=== PATIENT | female | born 1950 ===

== ENCOUNTER 2018-06-01 15:21 | Emergency (ER) | payer BC ==
[2018-06-01 15:29] VITALS: RESP 18
--- NOTE | 2018-06-01 17:08 | ED PDOC ---
HPI: Trauma/Fall <Hannah Schaefer Y - Last Filed: 06/01/18 19:03> - HPI History Per: Patient Additional Complaint(s): Pt is a 67 y/o female presenting to ED with trauma to the head. Pt states she was walking briskly and tripped on uneven pavement and fell forward landing on her knuckles and left knee first then hitting her face on the sidewalk. She denies any preceding symptoms (lightheadedness/vertigo) or post fall LOC, Dizziness, Vomiting, Motor weakness, sensory deficits, blurry vision, Confusion or drowsiness. At the moment, she complains of soreness over her left knee and right 5th digit. Denies any motor weakness or sensory deficits. Was able to walk to hospital on her afterwards. Daughter at bedside. PMD: Dr. Mock PMHX: HTN, DM, HLD, Ostheoarthritis, Thyroid Ca Hx SHx: C section, thyroid resection Social: Denies smoking, or heavy alcohol use. <Benita Novak - Last Filed: 06/01/18 19:15> - HPI Time Seen by Provider: 06/01/18 16:42 Chief Complaint (Nursing): Trauma Past Medical History Vital Signs: Last Vital Signs Temp 97.9 F 06/01/18 15:25 Pulse 78 06/01/18 15:25 Resp 18 06/01/18 15:25 BP 163/75 H 06/01/18 15:25 Pulse Ox 98 06/01/18 17:52 <Hannah Schaefer Y - Last Filed: 06/01/18 19:03> Reviewed: Historical Data, Nursing Documentation, Vital Signs Vital Signs: Last Vital Signs Temp 97.9 F 06/01/18 15:25 Pulse 78 06/01/18 15:25 Resp 18 06/01/18 15:25 BP 163/75 H 06/01/18 15:25 Pulse Ox 98 06/01/18 15:25 - Medical History PMH: HTN, Hypothyroidism - Surgical History Other surgeries: Thyroidectemy. C section - Family History Family History: States: No Known Family Hx - Living Arrangements Living Arrangements: With Family - Immunization History Hx Tetanus Toxoid Vaccination: No (Cannot remember) <Benita Novak - Last Filed: 02/14/19 19:15> - Allergies Allergies/Adverse Reactions: Allergies Allergy/AdvReac Type Severity Reaction Status Date / Time No Known Allergies Allergy Unverified 07/06/13 16:31 Review of Systems Constitutional: Negative for: Fever, Chills Cardiovascular: Negative for: Chest Pain, Palpitations Respiratory: Negative for: Cough, Shortness of Breath Gastrointestinal: Negative for: Nausea, Vomiting, Abdominal Pain Musculoskeletal: Positive for: Hand Pain (right finger), Leg Pain (Left knee). Negative for: Neck Pain, Shoulder Pain, Arm Pain, Back Pain, Foot Pain Neurological: Negative for: Weakness, Numbness, Incoordination, Change in Speech <Benita Novak - Last Filed: 06/01/18 19:15> Physical Exam - Physical Exam Appears: Positive for: No Acute Distress (Pleasant elderly females appears comfortable) Head Exam: Negative for: ATRAUMATIC (Left superior orbital region- 1-2cm superficial laceration with dried blood, with mild swelling. No palpable head tenderness or any signs of trauma.) Skin: Positive for: Normal Color Eye Exam: Positive for: EOMI, PERRL, Periorbital swelling (Right upper oribital swelling, mild, no ecchymosis). Negative for: Nystagmus, Conjunctival injection ENT: Positive for: TM Is/Are (in tact bilaterally), Other (No nasal or ear blood) Neck: Positive for: Normal, Painless ROM Cardiovascular/Chest: Positive for: Regular Rate, Rhythm, Other (No chest wall pain). Negative for: Chest Non Tender Respiratory: Positive for: Normal Breath Sounds. Negative for: Accessory Muscle Use, Crackles, Rales Gastrointestinal/Abdominal: Positive for: Normal Exam, Bowel Sounds, Soft. Negative for: Tenderness Back: Positive for: Normal Inspection, Other (Gait normal). Negative for: Vertebral Tenderness Extremity: Positive for: Normal ROM, Other (Left knee, mildly swollen, superficial abrasions, Full ROM, mildly tender to palpation. Right 5th digit-No visible deformities, small abrasians, Full ROM, no popping/clicking.). Negative for: Pedal Edema Neurologic/Psych: Positive for: Alert, measuring machine tender II-XII, Oriented, Gait. Negative for: Motor/Sensory Deficits, Aphasia, Facial Droop <Benita Novak - Last Filed: 06/01/18 19:15> - ECG O2 Sat by Pulse Oximetry: 98 <Benita Novak - Last Filed: 06/01/18 19:15> Medical Decision Making Medical Decision Makin:00 Patient s/p mechanical fall and has an abrasion above the right eyebrow. No LOC. Patient reports a slight headache. Will image head and X-ray finger and knee. Patient denies hip pain and is ambulating with steady gait. Neuro exam was normal. Patient will get tetanus vaccination and will clean wound and cover with Bacitracin. 17:24 Knee X-ray FINDINGS: BONES: Bone alignment and mineralization are normal. There is no acute displaced fracture or bone destruction. There are large patellar enthesophytes. JOINTS: There is moderate tricompartmental degenerative osteoarthrosis with reduced joint spaces, marginal osteophytes and tibial spiking, worse in the medial compartment. JOINT EFFUSION: There is a small suprapatellar joint effusion. OTHER FINDINGS: None. IMPRESSION: Moderate tricompartmental degenerative osteoarthrosis, worse in the medial compartment. Small suprapatellar joint effusion. 17:30 Hand X-ray FINDINGS: RIGHT SMALL FINGER: Normal right small finger, without acute fracture or focal lesion. Remainder of the right hand (as seen on the AP view) grossly unremarkable. JOINTS: Mild degenerative osteoarthrosis in the interphalangeal joints. The metacarpophalangeal joints are normal. SOFT TISSUES: Normal. OTHER FINDINGS: None. IMPRESSION: No acute displaced fracture or dislocation. 18:[address] Findings: Streak artifact from dental hardware. The facial bones appear unremarkable without acute displaced fracture. The orbits appear unremarkable. The temporomandibular joints appear located. Under aeration of the left mastoid air cells and to a lesser extent right mastoid air cells; correlate clinically for history of mastoiditis. The paranasal sinuses appear clear. The visualized brain appears unremarkable. The soft tissues appear unremarkable. Impression: No acute findings identified. Under aeration of the left mastoid air cells and to lesser extent right mastoid air cells; correlate clinically for history of mastoiditis. 18:[address] FINDINGS: HEMORRHAGE: No intracranial hemorrhage. BRAIN: No mass effect or edema. Bilateral basal ganglia calcifications. Intracranial atherosclerotic calcifications. The cedillo-white matter differentiation appears intact. Please note that MRI with diffusion imaging is more sensitive in the detection of acute ischemic event. VENTRICLES: No hydrocephalus. CALVARIUM: Unremarkable. PARANASAL SINUSES: Unremarkable as visualized. No significant inflammatory changes. MASTOID AIR CELLS: Unremarkable as visualized. No inflammatory changes. OTHER FINDINGS: None. IMPRESSION: No acute intracranial pathology identified. Incidental findings as above. 18:20 Imaging negative. Will discharge home. 19:03 Upon reevaluation, patient has no masstoid tenderness or ear pain. <Hannah Schaefer Y - Last Filed: 06/01/18 19:03> Medical Decision Makin67 y/o female with hx of mechanical fall including trauma to Head, Face, Right Finger, and Left knee and mild nausea headache. Alert and Oriented, No motor/sensory deficits. Tylenol Zofran ODT TDAP Head CT MaxiFac CT Xray Right 5th digit and Left knee Visual Acuity Small laceration above right eye, superficial, no active bleeding, 1-2cm, cleaned, no foreign bodies noted, bacitracin applied <Benita Novak - Last Filed: 06/01/18 19:15> Disposition <Hannah Schaefer Y - Last Filed: 06/01/18 19:03> - Patient ED Disposition Is Patient to be Admitted: No - Disposition Disposition: Routine/Home Disposition Time: 19:15 <Benita Novak - Last Filed: 06/01/18 19:15> - Clinical Impression Clinical Impression: Fall from slip, trip, or stumble - Disposition Condition: IMPROVED Additional Instructions: follow up with your primary doctor in 1-2 days return to the ED with any worsening or concerning symptoms Instructions: Preventing Falls in the Older Adult, Preventing Falls Forms: [employer] (Ecuadorean)
--- NOTE | 2018-06-01 17:28 | RAD ---
Date of service: 06/01/2018 PROCEDURE: Left Knee Radiographs. HISTORY: Pain. COMPARISON: 08/03/2007 FINDINGS: BONES: Bone alignment and mineralization are normal. There is no acute displaced fracture or bone destruction. There are large patellar enthesophytes. JOINTS: There is moderate tricompartmental degenerative osteoarthrosis with reduced joint spaces, marginal osteophytes and tibial spiking, worse in the medial compartment. JOINT EFFUSION: There is a small suprapatellar joint effusion. OTHER FINDINGS: None. IMPRESSION: Moderate tricompartmental degenerative osteoarthrosis, worse in the medial compartment. Small suprapatellar joint effusion.
--- NOTE | 2018-06-01 17:34 | RAD ---
Date of service: 06/01/2018 PROCEDURE: Right small finger radiographs. HISTORY: trauma, r/o fx COMPARISON: None. TECHNIQUE: AP radiograph of the right hand, as well as spot oblique and lateral images of small finger were obtained. FINDINGS: RIGHT SMALL FINGER: Normal right small finger, without acute fracture or focal lesion. Remainder of the right hand (as seen on the AP view) grossly unremarkable. JOINTS: Mild degenerative osteoarthrosis in the interphalangeal joints. The metacarpophalangeal joints are normal. SOFT TISSUES: Normal. OTHER FINDINGS: None. IMPRESSION: No acute displaced fracture or dislocation.
[2018-06-01] MEDS ORDERED: Tdap Vaccine 0.5 ml Vial (10-64 yrs) IM ONE ×2 (17:39→18:18)
--- NOTE | 2018-06-01 18:09 | CT ---
Date of service: 06/01/2018 PROCEDURE: CT HEAD WITHOUT CONTRAST. HISTORY: s/p head trauma COMPARISON: None available. TECHNIQUE: Axial computed tomography images were obtained through the head/brain without intravenous contrast. Radiation dose: Total exam DLP = 1570.02 mGy-cm. This CT exam was performed using one or more of the following dose reduction techniques: Automated exposure control, adjustment of the mA and/or kV according to patient size, and/or use of iterative reconstruction technique. FINDINGS: HEMORRHAGE: No intracranial hemorrhage. BRAIN: No mass effect or edema. Bilateral basal ganglia calcifications. Intracranial atherosclerotic calcifications. The cedillo-white matter differentiation appears intact. Please note that MRI with diffusion imaging is more sensitive in the detection of acute ischemic event. VENTRICLES: No hydrocephalus. CALVARIUM: Unremarkable. PARANASAL SINUSES: Unremarkable as visualized. No significant inflammatory changes. MASTOID AIR CELLS: Unremarkable as visualized. No inflammatory changes. OTHER FINDINGS: None. IMPRESSION: No acute intracranial pathology identified. Incidental findings as above.
--- NOTE | 2018-06-01 18:13 | CT ---
Date of service:06/01/2018 CT maxillofacial bones without IV contrast Indication: s/p facial/head trauma Comparison: Noncontrast head CT performed the same day. Technique: Axial computed tomography images were obtained of the maxillofacial bones without the use of intravenous contrast. Coronal and sagittal reformatted images were generated and reviewed. This CT exam was performed using 1 or more of the following dose reduction techniques: Automated exposure control, adjustment of the MAA and/or kV according to patient size, and/or use of iterative reconstruction technique. Radiation dose: Total exam DLP = 0.0 mGy-cm. Findings: Streak artifact from dental hardware. The facial bones appear unremarkable without acute displaced fracture. The orbits appear unremarkable. The temporomandibular joints appear located. Under aeration of the left mastoid air cells and to a lesser extent right mastoid air cells; correlate clinically for history of mastoiditis. The paranasal sinuses appear clear. The visualized brain appears unremarkable. The soft tissues appear unremarkable. Impression: No acute findings identified. Under aeration of the left mastoid air cells and to lesser extent right mastoid air cells; correlate clinically for history of mastoiditis.
[2018-06-01 19:16] VITALS: O2SAT 98
[2018-06-01 19:36] VITALS: BP 132/86; PULSE 68; TEMP 97.4
== END 2018-06-01 19:34 | disposition home or self-care (01) ==
LOC: H.ER 15:21
DX: S09.90XA Unspecified injury of head, initial encounter (principal); S01.81XA Laceration without foreign body of other part of head, initial encounter; M25.562 Pain in left knee; S69.90XA Unspecified injury of unspecified wrist, hand and finger(s), initial encounter; W01.0XXA Fall on same level from slipping, tripping and stumbling without subsequent striking against object, initial encounter; Y92.480 Sidewalk as the place of occurrence of the external cause; E03.9 Hypothyroidism, unspecified; E11.9 Type 2 diabetes mellitus without complications; E78.5 Hyperlipidemia, unspecified; I10 Essential (primary) hypertension; Z85.850 Personal history of malignant neoplasm of thyroid